=== PATIENT | male | born 1995 | race Caucasian/White ===

== ENCOUNTER 2024-07-30 12:10 | Emergency (ER) | payer MEDICAID, SELFPAY ==
[2024-07-30 12:15] VITALS: BP 157/80; PULSE 83; TEMP 36.6; O2SAT 99
--- NOTE | 2024-07-30 12:22 | XR_ITS ---
[facility] [id number] Patient Name: MAUYRI CISNEROS MRN: [id number] date: 1995 Sex: M Assigned Patient Location: ED.MAIN Current Patient Location: ED.MAIN Accession/Order Number: [id number] Exam Date: 07/30/2024 12:30 Report Date: 07/30/2024 13:10 At the request of: PARK SALAS Procedure: XR hand RT min 3V EXAM: XR hand RT min 3V HISTORY: Rule out foreign body, glass, 4th and 5th digits COMPARISON: None. TECHNIQUE: PA, oblique, lateral x-ray right hand. FINDINGS: No fracture or bony abnormality. Normal joints and soft tissues. No foreign body seen. Visualized carpal bones, distal radius L3 wrist unremarkable. XR/XR hand RT min 3V IMPRESSION: Negative for fracture or soft tissue abnormality. No foreign body seen Electronically authenticated by: DENZEL VELASCO Date: 07/30/2024 13:10
--- NOTE | 2024-07-30 12:31 | ED.WOUNDLAC1 ---
HPI - Wound/Laceration General Chief Complaint: Wound/Laceration Stated Complaint: RT HAND INJURY Time Seen by Provider: 07/30/24 12:16 Source: patient Mode of arrival: walk-in Limitations: no limitations History of Present Illness HPI narrative: 29-year-old male presents for lacerations to his right fourth and fifth fingers. He was attempting to hang a mirror and the mirror fell and it broke and the glass cut him. He states that a chunk of skin came off of the fourth finger. He states he did not punch anything. This happened just before coming into the emergency department. It has been a long time since he has had a tetanus shot, more than 10 years. Related Data Allergies Allergy/AdvReac Type Severity Reaction Status Date / Time No Known Drug Allergies Allergy Verified 07/30/24 12:15 Review of Systems ROS Narrative A ten point review of systems is negative except as noted above. PFSH PFSH Social History Little interest or pleasure in doing things: not at all Feeling down, depressed, or hopeless: not at all Exam Narrative Exam Narrative: Nurses note and vital signs reviewed and patient is not hypoxic. General: The patient appears well and in no apparent distress. Patient is resting comfortably on cart. Skin: Warm, dry, no pallor noted. There is no rash noted. Head: Normocephalic, atraumatic Eye: Normal conjunctiva, no drainage Ears, Nose, Mouth, and Throat: oral mucosa is moist. Nares patent. Cardiovascular: Regular Rate and Rhythm Respiratory: Patient is in no distress, no accessory muscle use Back: non-tender GI: Nontender Musculoskeletal: The right fourth finger has a curved laceration on the extensor side which is 2 cm in length. The fourth finger has a triangular skin avulsion with each side 1.5 cm in length. The DIP and PIP are full range of motion in all of his fingers. There is no active bleeding. Neurological: A&O, normal speech Psychiatric: Cooperative Constitutional Vital Signs, click to edit/add: Last Vital Signs Temp 97.8 F 07/30/24 12:15 Pulse 83 07/30/24 12:15 Resp 18 07/30/24 12:15 BP 157/80 H 07/30/24 12:15 Pulse Ox 99 07/30/24 12:15 Course Vital Signs Vital signs: Vital Signs Temperature 97.8 F 07/30/24 12:15 Pulse Rate 83 07/30/24 12:15 Respiratory Rate 18 07/30/24 12:15 Blood Pressure 157/80 H 07/30/24 12:15 Pulse Oximetry 99 07/30/24 12:15 Temperature 97.8 F 07/30/24 12:15 Pulse Rate 83 07/30/24 12:15 Respiratory Rate 18 07/30/24 12:15 Blood Pressure 157/80 H 07/30/24 12:15 Pulse Oximetry 99 07/30/24 12:15 MDM - Wound/Laceration MDM Narrative Medical decision making narrative: The importance of following up and seeing the orthopedist was discussed thoroughly with the patient and an appointment was made for him to see Dr. Sheehan on August 03 at 11 AM. Splints were applied to each of his fingers, application of these were checked by me and found to be appropriate, he is neurovascularly intact. There is no evidence of tendon injury or foreign body. He is going to follow-up with orthopedics because of the skin avulsion and the location over the PIP joint. He is at risk for dehiscence and this was discussed thoroughly with the patient. Differential Diagnosis Differential diagnosis: Likely laceration and avulsion of skin Imaging Data Right hand x-ray: Radiologist's impression: ITS Impressions Hand X-Ray 07/30/24 12:22 IMPRESSION: Negative for fracture or soft tissue abnormality. No foreign body seen Electronically authenticated by: DENZEL VELASCO Date: 07/30/2024 13:10 Discharge Plan Discharge Chief Complaint: Wound/Laceration Clinical Impression: Laceration, Avulsion of skin Patient Disposition: Home, Self-Care Time of Disposition Decision: 13:21 Condition: Good Mode of Transportation: Private Vehicle Print Language: [place] Islander Instructions: Laceration (ED), Skin Avulsion (ED) Referrals: Physician,Non-Staff, [Primary Care Provider] - 1 week Shmuel Sheehan MD [Physician] - 08/03/24 11:00 am Procedures ED Procedure Instructions Procedures Procedures: The following procedures were performed by me. Right fourth and fifth finger blocks applied resulting in complete skin anesthesia. The 2 lacerations were prepped with Betadine x 3 and draped sterilely and explored for foreign bodies and none were found. The fifth finger laceration was closed with four 5-0 Ethilon sutures resulting in good skin reapproximation. The fourth finger laceration which has a large skin avulsion was also closed. I was able to place three 4-0 Ethilon sutures resulting in adequate skin reapproximation and complete hemostasis. There were no complications.
[2024-07-30] MEDS: ADACEL DIPH,PERTUSS(ACELL),TET VAC/PF 0.5 ML ADULT SYRINGE IM (12:49)
[2024-07-30] MEDS: LIDOCAINE HCL 1% 100 MG/10 ML MDV INJ (12:52)
== END 2024-07-30 13:50 | disposition home or self-care (01) ==
PROVIDERS: Emergency Provider Emergency Medicine
DX: S61.214A Laceration without foreign body of right ring finger without damage to nail, initial encounter (principal); S61.216A Laceration without foreign body of right little finger without damage to nail, initial encounter; W25.XXXA Contact with sharp glass, initial encounter; Z23 Encounter for immunization
CPT/HCPCS: 12002; 73130; 90471; 90715; 99284